=== PATIENT | male | born 1965 | race Caucasian/White ===

== ENCOUNTER 2017-02-23 02:10 | Emergency (ER) | payer BC, OTHER ==
[~2017-02-23] VITALS: Ht 175.3 cm; Wt 122.5 kg
[2017-02-23] MEDS ORDERED: LOPRESSOR50 PO (02:33)
[2017-02-23] MEDS ORDERED: VALIUM5 MG PO (04:54)
[2017-02-23] MEDS ORDERED: NAPROSYN500 MG PO (04:54)
[2017-02-23 05:14] VITALS: BP 128/90
== END 2017-02-23 05:16 | disposition home or self-care (01) ==
LOC: ER 02:10
DX: G44.209 Tension-type headache, unspecified, not intractable (principal); F17.210 Nicotine dependence, cigarettes, uncomplicated; F10.99 Alcohol use, unspecified with unspecified alcohol-induced disorder

== ENCOUNTER 2019-05-26 11:19 | Emergency (ER) | payer BC, OTHER ==
[~2019-05-26] VITALS: Ht 175.3 cm; Wt 113.4 kg
--- NOTE | ~2019-05-26 | HC ---
[facility] [place] [address] CONSULTATION Name: TONI WISE [facility] [id number] Admission: 05/26/19 Attend Phys: Discharge: 05/26/19 Date of : 69 Report #: [id number] THIS REPORT FOR: //name// CC: Aileen Toure DATE OF SERVICE: 05/26/2019 HISTORY OF PRESENT ILLNESS: This is a 53-year-old male patient, who was seen by me because he said about 2-1/2 months ago, he woke up and his right hand was numb. He has seen his own physician since that time, but he also had other symptoms. Other symptoms include that he cannot concentrate. He indicates mentally he is okay, but his eyes does not focus many times. He drinks 5-6 beers every day and he smokes. REVIEW OF SYSTEMS: Indicate he said he has some bleeding disorder, where he has to be bled. So, he gives a history suggestive of polycythemia. Previously, his family doctor was managing it. Now, he is going to a lawn mower operator. His blood workup here indicates a hemoglobin of 16.3, which is somewhat high. 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 I suspect somebody else has to address that question. He has some history of muscle spasms, but otherwise has no history of stroke. He does have a history of hypertension and he said he had some MRI of his bile duct because it was dilated. There was his relevant 14-point review of system. PAST MEDICAL HISTORY: Negative for stroke. FAMILY HISTORY: Negative for any early age stroke. SOCIAL HISTORY: He smokes and drinks alcohol in significant amount. PHYSICAL EXAMINATION: Indicate he is alert. He is responsive. He can follow simple commands. His speech, concentration, and fund of knowledge is intact. Cranial nerve examination 2-12 looks unremarkable. I do not see much nystagmus. There may be slight difference in his strength, but it is not significant. Reflexes look symmetrical. There is no meningeal sign. There is no carotid bruit. I could not look at the patient's fundus. Blood pressure is 130/107, respirations 18, pulse is 80, and temperature is 97.6. LABORATORY DATA: His white count is normal. Hematocrit is 49. Sodium is a little low at 134. Cardiac and respiratory examination is unremarkable. His CT scan of the head was reviewed and is unremarkable. IMPRESSION: It is not clear what the patient's symptoms are from. It is possible it is carpal tunnel syndrome, but the other possibility like a small stroke secondary to polycythemia or multiple sclerosis cannot be excluded. He [address] [address] CONSULTATION Name: TONI WISE Room #: DEP YULIYA Carmen#: [id number] Admission: 05/26/19 Attend Phys: Discharge: 05/26/19 Date of : 69 Report #: [id number] needs further workup for that. I discussed his options in that regard. His symptoms are going on for 2-1/2 months. I discussed the situation here. After discussing all his options with him, plan is that we will get an MRI of the brain and MRA of the head and neck. If that is normal, then he will follow up with us in the office tomorrow and we can do an EMG to look for any carpal tunnel syndrome and we need to do an MRI of the cervical spine. I talked to him very clearly that he needs to stop drinking alcohol. Part of the problems with his vision may be early Wernicke's encephalopathy, but we will check myasthenia markers as an outpatient. I gave him one dose of thiamine and he should take thiamine as an outpatient for 5 days. He should also take 1 aspirin for the time being until we can establish the diagnosis. If MRI pupils are busy, then we can do the MRI tomorrow before his seizures, but I talked to Emergency Room physician and they are going to get it done before he goes. Thank you very much for this referral. By: [id number] Naeem Roblero MD /nt
[~2019-05-26 11:19] MED LIST: LOPRESSOR50 PO; NAPROSYN500 MG PO; VALIUM5 MG PO
[2019-05-26 12:10] LABS: ABSOLUTE NEUTROPHILS 2.9 thou/uL (1.4-8.2); BASOPHILS 1.3 % (0.0-2.0); EOSINOPHILS 1.3 % (0.0-3.0); HEMOGLOBIN 16.3 gm/dL (14.0-18.0); LYMPHOCYTES 35.2 % (24.0-44.0); MCH 31.3 pg (26.0-34.0); MCHC 33.4 g/dL (28.0-37.0); MCV 93.8 fL (80.0-100.0); MONOCYTES 10.7 % (1.0-8.0); PLATELET COUNT 254 thou/uL (150-400); POLYS 51.5 % (36.0-66.0); RBC 5.22 mil/uL (4.50-6.00); RDW 17.6 % (10.5-14.5); WBC 5.5 thou/uL (4.0-11.0)
[2019-05-26 12:15] LABS: ANION GAP 8 mmol/L (7-16); BUN 9 mg/dL (7-18); CALCIUM 8.9 mg/dL (8.5-10.1); CHLORIDE 100 mmol/L (98-107); CO2 26 mmol/L (21-32); CREATININE 0.9 mg/dL (0.7-1.3); GLUCOSE 100 mg/dL (74-106); POTASSIUM 4.2 mmol/L (3.5-5.1); SODIUM 134 mmol/L (136-145)
[2019-05-26 12:25] LABS: ALBUMIN 3.5 g/dL (3.4-5.0); SGOT 15 U/L (15-37); SGPT 19 U/L (30-65); TOTAL BILIRUBIN 0.5 mg/dL (<0.1-1.0); TOTAL PROTEIN 7.2 g/dL (6.4-8.2); TROPONIN-I <0.06 ng/mL (<0.06)
[2019-05-26 12:27] LABS: INR 1.1
[2019-05-26 18:52] VITALS: BP 110/85
--- NOTE | 2019-05-27 09:15 | EKG ---
[address] [place] [address] ELECTROCARDIOGRAM REPORT Name: TONI WISE Room #: [facility] YULIYA Carmen#: [id number] Admission: 05/26/19 Attend Phys: Discharge: 05/26/19 Date of : 69 Report #: [id number] THIS REPORT FOR: //name// [facility] ED Test Date: 2019-05-26 Test Time: 12:09:29 Pat Name: TONI WISE Department: Room: Gender: Correctional Probation Officer: Christian : 1965 Requested By: Aileen Brock Order Number: [id number] MD: Awais Hampton Measurements Intervals Riley Rate: 75 P: 13 MD: 180 QRS: 25 QRSD: 72 T: 23 QT: 356 QTc: 398 Interpretive Statements Sinus rhythm Poor R wave progression No previous ECG available for comparison Electronically Signed On 05-27-2019 9:15:41 CONVEYOR SYSTEM DISPATCHER by Awais Hampton [email or web address] <ELECTRONICALLY SIGNED> By: Awais Hampton MD, [facility] 05/27/19 0915 1209 1209 Awais Hampton MD, FACC /EPI
== END 2019-05-26 18:58 | disposition home or self-care (01) ==
LOC: ER 11:19
PROVIDERS: Nurse Practitioner
DX: R20.0 Anesthesia of skin (principal); I10 Essential (primary) hypertension; F17.210 Nicotine dependence, cigarettes, uncomplicated

== ENCOUNTER → 2019-06-14 | Outpatient (CLI) | payer BC, OTHER | LOC: MRI 12:10 | DX: M50.222 Other cervical disc displacement at C5-C6 level (principal); M48.02 Spinal stenosis, cervical region ==

== ENCOUNTER → 2019-07-11 | Outpatient (CLI) | payer BC, OTHER ==
[2019-07-11 07:34] LABS: ABSOLUTE NEUTROPHILS 3.8 thou/uL (1.4-8.2); BASOPHILS 0.9 % (0.0-2.0); EOSINOPHILS 1.3 % (0.0-3.0); HEMOGLOBIN 17.4 gm/dL (14.0-18.0); LYMPHOCYTES 27.6 % (24.0-44.0); MCH 31.5 pg (26.0-34.0); MCHC 33.4 g/dL (28.0-37.0); MCV 94.3 fL (80.0-100.0); MONOCYTES 10.3 % (1.0-8.0); PLATELET COUNT 235 thou/uL (150-400); POLYS 59.9 % (36.0-66.0); RBC 5.52 mil/uL (4.50-6.00); RDW 17.2 % (10.5-14.5); WBC 6.3 thou/uL (4.0-11.0)
[2019-07-11 07:41] LABS: CREATININE 0.9 mg/dL (0.7-1.3)
[2019-07-11 07:50] LABS: APTT 26.1 Seconds (24.5-32.8); PROTIME 10.6 Seconds (9.3-11.4)
[2019-07-11 11:25] LABS: CSF GLUCOSE 72 mg/dL (40-70); CSF PROTEIN 42 mg/dL (15-45)
[2019-07-11 11:44] LABS: CSF CLARITY CLEAR; CSF COLOR COLORLESS; CSF RBC 373 /mm3; CSF WBC 0 /mm3 (0-10); VOLUME 8.5 ml
[2019-07-13 12:09] LABS: CSF IgG 2.9 mg/dL (0.0-8.6)
== END | disposition home or self-care (01) ==
LOC: RAD 06:47 → LAB 15:01
PROVIDERS: Psychiatry & Neurology Neuromuscular Medicine
DX: G37.9 Demyelinating disease of central nervous system, unspecified (principal); M51.24 Other intervertebral disc displacement, thoracic region; Z98.890 Other specified postprocedural states; Z79.899 Other long term (current) drug therapy